=== PATIENT | male | born 1945 | race Caucasian/White ===

== ENCOUNTER 2018-03-15 11:29 | Outpatient (CLI) | payer OTHER | END 2018-03-15 20:01 | disposition home or self-care (01) | LOC: SCT 11:29 | PROVIDERS: ATTEND Internal Medicine Infectious Disease | DX: J98.4 Other disorders of lung (principal) | CPT/HCPCS: 71250-TC ==

== ENCOUNTER 2019-12-13 09:41 | Emergency (ER) | payer OTHER ==
[~2019-12-13] VITALS: Ht 182.9 cm; Wt 98.4 kg
[2019-12-13 09:54] VITALS: BP_SYST 153
--- NOTE | 2019-12-13 09:54 | NUR ---
Patient to ER bed 5 to gown for evaluation. Side rails up. Report given to LICO Shirley.
--- NOTE | 2019-12-13 09:55 | NUR ---
ER Dr. aHmilton at bedside examining patient.
--- NOTE | 2019-12-13 09:55 | NUR ---
Patient came from home for evaluation. Patient is complaining of abcess to right axillary that started on Thursday and popped on Thursday. No other complaints at this time.
[2019-12-13] MEDS ORDERED: LIDOCAINE 1% 10 MG/ML, 20 ML MDV INJ ONE (10:00)
--- NOTE | 2019-12-13 10:15 | NUR ---
Dr. Hamilton at bedside to drain abcess.
[2019-12-13 10:30] VITALS: BP_SYST 153
--- NOTE | 2019-12-13 10:30 | NUR ---
Patient given written and verbal discharge instructions and verbalizes understanding. ER MD discussed with patient the results and treatment provided. Patient in stable condition. ID arm band removed. Patient educated on pain management and to follow up with PMD. Pain Scale 0/10. Opportunity for questions provided and answered. Medication side effect fact sheet provided.
== END 2019-12-13 10:30 | disposition home or self-care (01) ==
LOC: SED 09:41
DX: L02.411 Cutaneous abscess of right axilla (principal)
CPT/HCPCS: 10060; 99282; J2001

== ENCOUNTER 2021-03-28 15:23 | Outpatient (CLI) | payer OTHER ==
[2021-03-28 16:14] LABS: MEAN CORPUSCULAR VOLUME 94 fL (79.0-98.0); RED CELL DISTRIBUTION WIDTH 13.6 % (9.0-15.0)
[2021-03-28 16:28] LABS: BASOPHILS # (AUTO) 0.1 K/uL (0.0-0.2); BASOPHILS % (AUTO) 0.7 % (0.0-2.0); EOSINOPHILS # (AUTO) 0.2 K/uL (0.0-0.4); EOSINOPHILS % (AUTO) 2.3 % (0.0-4.0); HEMATOCRIT 43.1 % (36-54); HEMOGLOBIN 14.4 g/dL (14.0-18.0); LYMPHOCYTES # (AUTO) 0.8 K/uL (1.0-5.5); LYMPHOCYTES % (AUTO) 8.6 % (20.5-51.5); MEAN CORPUSCULAR HEMOGLOBIN 31 pg (27-31); MEAN CORPUSCULAR HGB CONC 33 % (32-36); MONOCYTES # (AUTO) 0.5 K/uL (0.0-1.0); NEUTROPHILS # (AUTO) 7.2 K/uL (1.8-7.7); NEUTROPHILS % (AUTO) 82.4 % (40.0-70.0); PLATELET COUNT (AUTO) 244 K/uL (130-430); RED BLOOD CELL COUNT(AUTO) 4.58 MIL/uL (4.2-6.2); WHITE BLOOD COUNT (AUTO) 8.8 K/uL (4.8-10.8)
[2021-03-28 16:38] LABS: BILIRUBIN,URINE NEGATIVE (NEGATIVE); BLOOD, URINE NEGATIVE (NEGATIVE); CLARITY/URINE CLEAR (CLEAR); COLOR,URINE YELLOW (YELLOW); GLUCOSE,URINE 1+ (NEGATIVE); KETONES,URINE NEGATIVE (NEGATIVE); LEUKOCYTE ESTERASE ,URINE NEGATIVE (NEGATIVE); NITRITE, URINE NEGATIVE (NEGATIVE); PH,URINE 5.5 (5.0-8.0); PROTEIN URINE NEGATIVE (NEGATIVE); UROBILINOGEN,URINE 0.2 (0.2-1.0)
[2021-03-28 18:04] LABS: SODIUM SERUM 139 mmol/L (136-145)
[2021-03-28 18:05] LABS: ALANINE AMINOTRANSFERASE 31 U/L (12-78); ALBUMIN 3.2 g/dL (3.4-4.8); ANION GAP 9 (5-15); ASPARTATE AMINOTRANSFERASE 22 U/L (10-37); BILIRUBIN,DIRECT 0.4 mg/dL (0.0-0.3); CALCIUM 8.5 mg/dL (8.4-11.0); CHLORIDE 103 mmol/L (98-107); CREATININE 1.17 mg/dL (0.55-1.30); GLUCOSE 146 mg/dL (70-99); TOTAL BILIRUBIN 1.6 mg/dL (0.0-1.0); UREA NITROGEN, BLOOD 14 mg/dL (8-21)
[2021-03-28 18:06] LABS: THYROID STIMULATING HORMONE 1.44 uIu/mL (0.36-3.74)
== END 2021-03-28 19:54 | disposition home or self-care (01) ==
LOC: SLB 15:23
PROVIDERS: ATTEND Internal Medicine Infectious Disease
DX: M47.812 Spondylosis without myelopathy or radiculopathy, cervical region (principal); M48.02 Spinal stenosis, cervical region; M89.38 Hypertrophy of bone, other site; I70.90 Unspecified atherosclerosis; M47.814 Spondylosis without myelopathy or radiculopathy, thoracic region; M81.8 Other osteoporosis without current pathological fracture; J98.4 Other disorders of lung; I70.0 Atherosclerosis of aorta; M48.04 Spinal stenosis, thoracic region; M46.04 Spinal enthesopathy, thoracic region; M47.817 Spondylosis without myelopathy or radiculopathy, lumbosacral region; D64.9 Anemia, unspecified; I82.403 Acute embolism and thrombosis of unspecified deep veins of lower extremity, bilateral; M54.5 Low back pain; N18.9 Chronic kidney disease, unspecified; K75.9 Inflammatory liver disease, unspecified; N39.0 Urinary tract infection, site not specified; E55.9 Vitamin D deficiency, unspecified; F32.9 Major depressive disorder, single episode, unspecified; R97.20 Elevated prostate specific antigen [PSA]; E11.9 Type 2 diabetes mellitus without complications; A53.9 Syphilis, unspecified; R76.11 Nonspecific reaction to tuberculin skin test without active tuberculosis; M10.00 Idiopathic gout, unspecified site
CPT/HCPCS: 36415; 72050-TC; 72072-TC; 72100-TC; 80048; 80076; 81003; 82306; 82746; 83036; 84153; 84443; 84550; 85025; 86480; 86592; 93970

== ENCOUNTER 2023-09-14 23:23 | Emergency (ER) | payer OTHER ==
[~2023-09-14] VITALS: Ht 182.9 cm; Wt 95.3 kg
[2023-09-14 23:36] VITALS: BP_SYST 141; PULSE 107; RESP 20; TEMP 98.5; O2SAT 97
[2023-09-15] MEDS ORDERED: DICL20GE TP (00:49)
[2023-09-15] MEDS ORDERED: NEU300 PO (00:49)
[2023-09-15] MEDS: KETOROLAC TROMETHAMINE 30 MG VIAL IM ONE (00:52)
[2023-09-15 01:05] VITALS: BP_SYST 141; PULSE 107; RESP 20; TEMP 98.5; O2SAT 97
== END 2023-09-15 01:05 | disposition home or self-care (01) ==
LOC: SED 23:23
DX: M54.12 Radiculopathy, cervical region (principal); M25.512 Pain in left shoulder; Z79.899 Other long term (current) drug therapy
CPT/HCPCS: 99283; 96372; J1885